=== PATIENT | female | born 1960 ===

== ENCOUNTER 2023-05-17 18:37 | Emergency (ER) | payer OTHER, SELFPAY ==
--- NOTE | ~2023-05-17 | XR_ITS ---
EXAMINATION: XR WRIST, LEFT CLINICAL INFORMATION: Fall, pain, status post surgery COMPARISON: None available. TECHNIQUE: Four views of the left wrist. FINDINGS: Exam shows probable acute fracture of the radial styloid. There is a step-off here. Other findings in the adjacent wrist bones may be related to surgical manipulation. There are several bony densities in the region adjacent to the radial styloid. These could be avulsion fragments or postsurgical fragments. There is also a bony erosion involving the capitate. A normal-appearing lunate on navicular does not appear to be present. Again this may be postsurgical. XR/XR wrist LT 2V IMPRESSION: Findings suggest acute fracture of the distal radius, radial styloid. Other findings may be postsurgical or chronic but acute traumatic injury in the carpal region cannot be excluded.
[2023-05-17 19:15] VITALS: BP 159/85; PULSE 73; RESP 18; TEMP 36.6; O2SAT 97; BMI 38.4
--- NOTE | 2023-05-17 19:15 | ED.GENADULT ---
HPI - General Adult General Chief complaint: Extremity Injury, Upper Stated complaint: fell left wrist pain s/p wrist surgery 02/22 Time Seen by Provider: 05/17/23 21:56 Source: patient Mode of arrival: ambulatory Limitations: no limitations History of Present Illness HPI narrative: 62-year-old female who presents emergency department for evaluation of left wrist pain after falling. The patient states [place] the gas station and [place] off the curb which caused her to fall landing on outstretched wrist bilaterally. The patient developed immediate severe pain in her left wrist. The patient states that she had a left wrist injury approximately 1 year prior which caused injury to the carpal bones or carpal ligaments. In January of 2023 the patient had a proximal carpectomy for chronic pain. This was done at [facility]. The patient states she is having severe pain in her wrist which is worse with minimal movement, the pain is located both over the radial and ulnar aspects of her wrist. She denies any other injury from the fall. The patient took tramadol prior to coming to emergency department with no relief for discomfort. She states that her pain is 10/10. Related Data Home Medications Medication Instructions Recorded Confirmed atorvastatin 40 mg tablet 40 mg PO QPM 04/28/22 hydrochlorothiazide 12.5 mg tablet 12.5 mg PO DAILY 04/28/22 levothyroxine 200 mcg tablet 200 mcg PO DAILY 04/28/22 potassium chloride 20 mEq 20 meq PO DAILY 04/28/22 tablet,extended release(part/cryst) sertraline 100 mg tablet 100 mg PO BID 04/28/22 Previous Rx's Medication Instructions Recorded tramadol 50 mg tablet 50 mg PO TID PRN pain #20 tabs 04/28/22 albuterol sulfate 90 mcg/actuation 1 inh inhalation Q4-6H PRN 07/30/22 aerosol inhaler (ProAir HFA) shortness of breath or wheezing #8.5 grams azithromycin 250 mg tablet 250 mg PO DAILY 5 days #6 tabs 07/30/22 (Zithromax Z-Sp) prednisone 20 mg tablet See Rx Instructions PO DAILY 10 08/01/22 days #15 tabs morphine 15 mg immediate release 15 mg PO Q4-6H PRN pain #14 tabs 05/17/23 tablet Allergies Allergy/AdvReac Type Severity Reaction Status Date / Time sulfur Allergy Unknown hives, rash Uncoded 04/28/22 14:58 Review of Systems Review of Systems: Yes all other systems are reviewed and are negative [facility] Social History Social History Advance Directives: No Advance Directives Information Provided: No Physical Exam ED Vital Signs: Vital Signs - 24 hr 05/17/23 19:15 05/17/23 21:05 Temperature 97.9 F 99.1 F Pulse Rate 73 70 Respiratory Rate 18 18 Blood Pressure 159/85 H 143/79 H Pulse Oximetry 97 98 Oxygen Delivery Method Room Air Room Air BMI result Body Mass Index 38.4 Vital signs did reveal an elevated blood pressure of 159/85 otherwise unremarkable. This is most likely elevated secondary to her pain. Exam: General: Awake, alert , in distress secondary to her pain Extremities: the patient does have abrasions to the palmar aspect of her right hand, the patient has soft tissue swelling of her left wrist with significant pain with minimal palpation of both the ulnar and radial aspects a wrist, she has significant pain with minimal flexion extension of the wrist, the patient's hand and wrist are neurovascularly intact Course Course Course Narrative: This is a rapid medical exam: Additional HPI, ROS, PE not included below will be deferred to primary provider. Patient is a 62-year-old female presenting to the emergency department with complaint of left wrist pain after a trip and fall around 11am today. Had radial carpectomy to left wrist by Dr. Shaquille Lee on 02/23, did not call his office. States pain is radiating to elbow, some tingling. Took a Tramadol at 16:30, as well as applied ice. Increased pain with ROM of fingers of left hand. Plan: x-ray Medical Decision Making Medical Decision Making MDM Narrative: 62-year-old female with a history of previous left wrist injury and your recent proximal carpectomy for chronic pain who presents emergency department for evaluation a trip and fall landing on outstretched outstretched arms. Patient is currently complaining of severe pain in her left wrist. Examination did reveal tenderness palpation over the radial and ulnar aspects of the wrist with soft tissue swelling and severe pain with minimal flexion extension of the wrist, the patient's wrist and hand neurovascular intact. X-ray of the left wrist were obtained and the patient has postsurgical changes from her proximal carpectomy as well as arthritic changes. I did review the x-rays and concur with the radiologist's reading radial styloid process fracture however other acute fractures are difficult to rule out given her postsurgical changes. Patient was given morphine 4 mg orally. The patient was placed in a padded volar ortho glass wrist splint patient was advised to take Tylenol for pain and for pain not relieved by Tylenol she was prescribed morphine 15 mg every 4 hours as needed. She was advised to stop taking the tramadol while she is taking morphine. Differential Diagnosis Differential Diagnoses: The differential diagnosis associated with the presentation includes Differential diagnosis includes was not limited to left wrist sprain, left wrist fracture Radiology Impression Discussion of test interpretation with radiology: I have reviewed the radiologist's reading. Radiologist Impression: XR WRIST, LEFT FINDINGS: Exam shows probable acute fracture of the radial styloid. There is a step-off here. Other findings in the adjacent wrist bones may be related to surgical manipulation. There are several bony densities in the region adjacent to the radial styloid. These could be avulsion fragments or postsurgical fragments. There is also a bony erosion involving the capitate. A normal-appearing lunate on navicular does not appear to be present. Again this may be postsurgical. XR/XR wrist LT 2V IMPRESSION: Findings suggest acute fracture of the distal radius, radial styloid. Other findings may be postsurgical or chronic but acute traumatic injury in the carpal region cannot be excluded. 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 You were placed in a ortho glass wrist splint, keep the splint on until he can be re-evaluated by your orthopedic surgeon. Take Tylenol (acetaminophen) 500 mg pills, 2 pills every 6 hours as needed for pain. For pain not relieved byTylenol take morphine 15 mg pills, 1 pill every 4 hours as needed for pain. This medication will make you sleepy, do not drive or work while taking this medication. Morphine is a narcotic medication and can be addicting. If you are concerned about addiction you can ask the pharmacist for less pills or do not get this prescription filled. Stop taking tramadol while your taking morphine. Call your hand surgeon at [facility] for follow-up this week, you may need a more sophisticated Imaging studies such as a CT scan or MRI to determine the extent of your injury to your wrist. Follow-up with your doctor in 2 days. Please return to the emergency department if your symptoms get worse or if you develop any symptoms that are concerning to you. Here is the radiology reading, you can review this with your hand surgeon. EXAMINATION: XR WRIST, LEFT CLINICAL INFORMATION: Fall, pain, status post surgery COMPARISON: None available. TECHNIQUE: Four views of the left wrist. FINDINGS: Exam shows probable acute fracture of the radial styloid. There is a step-off here. Other findings in the adjacent wrist bones may be related to surgical manipulation. There are several bony densities in the region adjacent to the radial styloid. These could be avulsion fragments or postsurgical fragments. There is also a bony erosion involving the capitate. A normal-appearing lunate on navicular does not appear to be present. Again this may be postsurgical. XR/XR wrist LT 2V IMPRESSION: Findings suggest acute fracture of the distal radius, radial styloid. Other findings may be postsurgical or chronic but acute traumatic injury in the carpal region cannot be excluded. Dictated By: Bartolo Ortiz MD Prescriptions: New morphine 15 mg tablet 15 mg PO Q4-6H PRN (Reason: pain) Qty: 14 0RF Rx Instructions: Patient may request partial fill; Partial Fill upon patient request. No Action prednisone 20 mg tablet See Rx Instructions PO DAILY 10 Days Qty: 15 0RF Rx Instructions: orally daily; 2 tabs daily x 5 days then 1 tab daily x5 days and stop hydrochlorothiazide 12.5 mg tablet 12.5 mg PO DAILY sertraline 100 mg tablet 100 mg PO BID potassium chloride 20 mEq tablet,ER particles/crystals 20 meq PO DAILY levothyroxine 200 mcg tablet 200 mcg PO DAILY atorvastatin 40 mg tablet 40 mg PO QPM tramadol 50 mg tablet 50 mg PO TID PRN (Reason: pain) Qty: 20 0RF albuterol sulfate [ProAir HFA] 90 mcg/actuation HFA aerosol inhaler 1 inh inhalation Q4-6H PRN (Reason: shortness of breath or wheezing) Qty: 8.5 0RF azithromycin [Zithromax Z-Sp] 250 mg tablet 250 mg PO DAILY 5 Days Qty: 6 0RF Rx Instructions: 2 pills day one then 1 pill per day x 4 days
[2023-05-17 21:05] VITALS: BP 143/79; PULSE 70; RESP 18; TEMP 37.3; O2SAT 98
--- NOTE | 2023-05-17 22:27 | MHC.EDTECH ---
VOLAR FIBERGLASS SPLINT APPLY TO PATIENT LEFT ARM .
[2023-05-17] MEDS: Morphine Sulfate Immed Release 15 MG TABLET PO (22:28)
[2023-05-17 22:57] VITALS: BP 135/71; PULSE 70; RESP 16; TEMP 36.3; O2SAT 97
== END 2023-05-17 22:58 | disposition home or self-care (01) ==
PROVIDERS: Emergency Provider Emergency Medicine Emergency Medical Services; PCP Nurse Practitioner Adult Health
DX: S52.515A Nondisplaced fracture of left radial styloid process, initial encounter for closed fracture (principal); M25.532 Pain in left wrist; W01.10XA Fall on same level from slipping, tripping and stumbling with subsequent striking against unspecified object, initial encounter; Y93.9 Activity, unspecified; Y92.480 Sidewalk as the place of occurrence of the external cause; Y99.9 Unspecified external cause status; Z79.899 Other long term (current) drug therapy
CPT/HCPCS: 73100; 99283